=== PATIENT | male | born 1960 | race Caucasian/White ===

== ENCOUNTER 2018-09-23 10:40 | Outpatient (CLI) | payer OTHER ==
--- NOTE | 2018-09-23 13:46 | PET ---
PET CT: HISTORY: 58-year-old male with right lung cancer. Exam requested for initial staging. TECHNIQUE: PET scanning with CT attenuation correction was performed from the base of the brain through the prox imal thighs following the intravenous administration of 10.7 mCi F18-FDG in the right wrist. COMPARISON: None. CORRELATION: CTA chest of 09/10/18 from [facility]. FINDINGS: There is intense FDG localization in the right apical lung mass with a SUV of 19. Involvement of the adjacent bones cannot be excluded. No abnormal FDG localization is seen in the distal bones. No nicholas hypermetabolism is noted in the mediastinum, hilar regions, axilla, abdomen, or pelvis. No h ypermetabolic liver or adrenal lesions are seen. Physiologic activity is noted in the GI and tracts, and the visualized portions of the brain. The CT scan used for attenuation correction demonstrates no evidence of pleural effusions or ascites. IMPRESSION: Right apical lung malignancy. Adjacent bone involvement cannot be excluded. No evidence of distant me tastatic disease. POS: MANUELAH
== END 2018-09-23 10:41 | disposition home or self-care (01) ==
LOC: PET 10:40
PROVIDERS: ATTEND Internal Medicine Hematology & Oncology
DX: C34.91 Malignant neoplasm of unspecified part of right bronchus or lung (principal)
CPT/HCPCS: 78815; A9552

== ENCOUNTER 2018-10-02 06:58 | Outpatient (CLI) | payer OTHER ==
--- NOTE | 2018-10-02 08:55 | MRI ---
MRI thoracic spine with and without contrast: DATE: 10/02/2018 HISTORY: 58-year-old male with right upper lobe lung cancer. Evaluate extent of thoracic spine invasion. COMPARISON: None FINDINGS: At the apical segment of the right upper lobe, there is a heterogeneously moderately enhancing tumor mass that measures approximately 4.5 x 4.5 x 3.5 cm. It extends through the right T2-3 neural foramen and protrudes into the right side of the spinal canal, almost abutting the right side of the spinal cord, and occupy approximately 10-20% of the cross-sectional area of the spinal canal. The component of the tumor within the right side of the spinal canal measures approximately 2 x 1 x 1.5 c m. The tumor broadly abuts the right apical pleural surface (circumferentially as seen on axial images). A small portion of the right T2 vertebral body and right T2 pedicle have bone marrow signal abnormality which may represent reactive edema, or possibly early infiltration of bone by the tumor. The right T2-3 neural foramen is widened by the tumor. The tumor completely envelops the exiti ng right T2 nerve root. The thoracic spinal cord is normal in size and signal with no evidence of significant impingement. Th ere is no high-grade central spinal canal stenosis at any level. No abnormal enhancement or tumor mass at any other level within the spinal canal or osseous thoracic spine at other levels. Moderate d egenerative disc disease at several levels, including T12-L1 and L1-2. Chronic anterior wedging of L1. IMPRESSION: 1. Right apical segment upper lobe primary lung cancer, Pancoast tumor, extends into the right side o f the spinal canal through the right T2-3 neural foramen. 2. No other levels of involvement. No cord compression.
[2018-10-02] MEDS ORDERED: Gadobenate Dimeglumine 529 MG/1 ML (20ML VIAL) ONE (09:00)
== END 2018-10-02 06:59 | disposition home or self-care (01) ==
LOC: SCSMRI 06:58
PROVIDERS: ATTEND Radiology Radiation Oncology
DX: C34.11 Malignant neoplasm of upper lobe, right bronchus or lung (principal)
CPT/HCPCS: 72157

== ENCOUNTER 2018-10-31 14:11 | Inpatient (IN) | payer OTHER ==
[2018-10-31] MEDS ORDERED: Piperacillin/Tazobactam 4.5 GM VIAL ONE (14:28)
[2018-10-31 14:40] LABS: #Lymphocytes 0.1 thou/uL (1.20-3.40); #Monocytes 0.1 thou/uL (0.11-0.59); #Neutrophils 3.2 thou/uL (1.40-6.50); %Eosinophils 0.4 % (0.0-10.0); %Lymphocytes 2.8 % (21.0-51.0); %Monocytes 2.3 % (0.0-10.0); %Neutrophils 94.4 % (42.0-75.0); Hemoglobin 12.9 g/dL (14.0-18.0); Mean Corpuscular HGB CONC 34.9 g/dL (32.0-36.0); Mean Corpuscular Hemoglobin 31.6 pg (27.0-31.0); Mean Corpuscular Volume 90.4 fL (78.0-98.0); Mean Platelet Volume 7.4 fL (7.4-10.4); Platelet Count 133 thou/uL (130-400); RBC Distribution Width 12.5 % (11.5-14.5); Red Blood Cell (RBC) Count 4.07 mill/uL (4.70-6.10); White Blood Cell (WBC) Count 3.4 thou/uL (4.8-10.8)
--- NOTE | 2018-10-31 14:43 | RAD ---
XR Chest 1 View Portable History: Sepsis alert Comparison: Radiograph September 10, 2018 Findings: Subtle bibasilar airspace opacities are new. No pneumothorax. No acute osseous abnormality. Large right apical mass. Impression: Subtle bibasilar airspace opacities concerning for infection or treatment-related edema.
[2018-10-31 17:11] LABS: Albumin 3.5 g/dL (3.5-5.0)
[2018-10-31 17:12] LABS: Chloride 106 mmol/L (98-107); Potassium 3.8 mmol/L (3.5-5.1); Sodium 134 mmol/L (136-145)
[2018-10-31 17:13] LABS: Glucose 113 mg/dL (70-105)
[2018-10-31 17:14] LABS: Calcium 7.8 mg/dL (7.8-10.44); Globulin 2.5 g/dL (2.4-3.5)
[2018-10-31 17:15] LABS: Anion Gap 12 mmol/L (10-20); Bilirubin, Total 0.9 mg/dL (0.2-1.2); Carbon Dioxide 20 mmol/L (22-29)
[2018-10-31 17:16] LABS: Alkaline Phosphatase 78 U/L (40-150)
[2018-10-31 17:17] LABS: BUN (Urea Nitrogen) 10 mg/dL (8.4-25.7); Calc. Creatinine Clearance 0 mL/min (70-130); Estimated GFR-MDRD Greater than 90
[2018-10-31 17:18] LABS: AST (SGOT) 42 U/L (5-34)
[2018-10-31 17:19] LABS: ALT (SGPT) 52 U/L (8-55)
[2018-10-31 17:34] LABS: Bilirubin Negative (Negative); Blood, Urine Negative (Negative); Clarity Clear (Clear); Glucose, Urine (Dipstick) Normal (Negative); Leukocyte Negative Leu/uL (Negative); Nitrite Negative (Negative); Protein, Urine (Dipstick) Negative (Neg-Trace); Urobilinogen Normal mg/dL (Less than 2)
[2018-10-31] MEDS ORDERED: Acetaminophen 500 MG TAB ONE (18:31)
[2018-10-31] MEDS ORDERED: Sodium Chloride 0.9% 1,000 ML IV SCH (19:15)
[2018-10-31 22:42] VITALS: BMI 22.1
--- NOTE | 2018-10-31 22:55 | PDOC.EVN ---
Event Note - Event Note Event Note: H&P [id number]
[2018-11-01] MEDS: Sodium Chloride 0.9% 1,000 ML IV SCH ×2 (00:02→14:43)
[2018-11-01] MEDS: Acetaminophen 325 MG TAB PO PRN ×3 (00:12→19:21)
--- NOTE | 2018-11-01 03:06 | HP ---
CHIEF COMPLAINT: Fever. HISTORY OF PRESENT ILLNESS: Mr. Romero is a 58-year-old male with a past medical history of lung cancer, on chemotherapy, was sent to the emergency room from [facility] for fever and low blood pressure. The patient reports his fever was associated with chills that began last night after receiving his 4th round of chemo. Temperature maximum was 103. Also, he had a slight headache. He denies shortness of breath, nausea, or vomiting, but he has been having cough and sore throat. Septic workup done in the ED. Started on IV antibiotics. The patient has been admitted to the hospital for further management. PAST MEDICAL HISTORY: Lung cancer. PAST SURGICAL HISTORY: As elsewhere in the chart. SOCIAL HISTORY: He drinks socially. He is a former smoker. FAMILY HISTORY: Reviewed and noncontributory. ALLERGIES: NO KNOWN ALLERGIES. HOME MEDICATIONS: Please see home medications reconciliation form for updated medications. REVIEW OF SYSTEMS: Review of 14 systems is negative except what is mentioned in the history of present illness. PHYSICAL EXAMINATION: VITAL SIGNS: Blood pressure 100/65, pulse is 97, temperature is 100, respiratory rate is 20. HEAD AND NECK: Normocephalic, atraumatic. Neck is supple. CHEST: Fair bilateral air entry. HEART: S1, S2. Regular. ABDOMEN: Soft, nontender. Bowel sounds present. NEUROLOGIC: Awake, alert, oriented x3. PSYCH: Normal mood. EXTREMITIES: No clubbing or cyanosis. LABORATORY DATA: Sodium 134, WBC 3.4 with neutrophils 94%. Chest x-ray showed bibasilar air space opacities concerning for infection/edema ? ASSESSMENT AND PLAN: 1. Fever in an immunocompromised patient. 2. Pneumonia ? 3. Lung cancer, on chemotherapy. 4. Immunocompromised. PLAN: 1. Admit. 2. Septic workup including blood cultures. 3. IV antibiotics. 4. IV fluids. 5. Reconcile home medications. 6. DVT prophylaxis, low-molecular weight heparin. 7. Expected length of stay is 2 midnights or more. Job ID: [id number]
[2018-11-01] MEDS: Vancomycin HCl 1.25 GM in Sodium Chloride 0.9% 250 ML 250 ML IVPB SCH ×2 (03:58→17:12)
[2018-11-01] MEDS ORDERED: Vancomycin HCl 1 GM in Premix Bag 1 BAG IVPB SCH (04:00)
[2018-11-01 05:13] LABS: Anion Gap 12 mmol/L (10-20); BUN (Urea Nitrogen) 9 mg/dL (8.4-25.7); Calc. Creatinine Clearance 111 mL/min (70-130); Calcium 7.9 mg/dL (7.8-10.44); Carbon Dioxide 20 mmol/L (22-29); Chloride 108 mmol/L (98-107); Estimated GFR-MDRD Greater than 90; Glucose 99 mg/dL (70-105); Potassium 3.7 mmol/L (3.5-5.1); Sodium 136 mmol/L (136-145)
[2018-11-01 07:53] LABS: Band 13 % (5-11); Eosinophils 1 % (0-10); Hemoglobin 11.9 g/dL (14.0-18.0); Lymphocytes 11 % (21-51); MDiff Complete? YES; Mean Corpuscular HGB CONC 35.5 g/dL (32.0-36.0); Mean Corpuscular Volume 90.1 fL (78.0-98.0); Mean Platelet Volume 7.1 fL (7.4-10.4); Monocytes 3 % (0-10); Neutrophil 72 % (42-75); Platelet Count 99 thou/uL (130-400); Platelet Morphology Comment Appears Decreased; RBC Distribution Width 12.5 % (11.5-14.5); Red Blood Cell (RBC) Count 3.74 mill/uL (4.70-6.10); White Blood Cell (WBC) Count 1.6 thou/uL (4.8-10.8)
[2018-11-01] MEDS: Enoxaparin Sodium 40 MG/0.4 ML SYRINGE SC SCH (08:48)
[2018-11-01] MEDS: Cefepime 2 GM in Sodium Chloride 0.9% 100 ML IVPB SCH ×2 (08:48→20:12)
[2018-11-01] MEDS ORDERED: Prevnar 13-Val Conj/PF 0.5 ML SYRINGE IM ONE (09:00)
--- NOTE | 2018-11-01 14:31 | PRG ---
DATE OF SERVICE: 11/01/2018 SUBJECTIVE: The patient is seen and examined at the bedside. He is feeling good. His appetite is fair. He does not have much complaints to offer. He did not have fever today. OBJECTIVE: VITAL SIGNS: Blood pressure is 97/57, pulse is 79, temperature is 98.2, respirations 16, O2 saturation is 94% on room air. HEENT: His head is atraumatic and normocephalic. Eyes are PERRLA. Sclerae are nonicteric. Oral mucosa is moist. NECK: Supple. LUNGS: Breath sounds somewhat diminished at both bases. HEART: S1 and S2 normal. No S3. No S4. ABDOMEN: Soft, nontender, nondistended. EXTREMITIES: No clubbing, cyanosis, or edema. NEUROLOGIC: He is alert and oriented x4. There are no any motor or sensory deficits present. Cranial nerves are intact. LABORATORY DATA: White count of 1.6, hemoglobin 11.9, hematocrit 33.7, platelet count is 99,000. Sodium of 136, potassium 3.7, chloride 108, CO2 of 20, BUN 9, creatinine 0.72, glucose 99, and calcium 7.9. Microbiology; C difficile on stool, negative. Blood cultures x2, negative. IMPRESSION: 1. Fever postchemotherapy, most likely related to chemotherapy, although sepsis was not ruled out yet as an etiology. 2. Pulmonary infiltrates to rule out pneumonia. 3. Lung cancer, on chemotherapy. The last chemotherapy on . 4. Immunocompromised. 5. Hypotension. PLAN: Continue IV fluids. Continue IV antibiotics. We will check his procalcitonin. We will continue followup on CBC and comp every morning. Job ID: [id number]
--- NOTE | 2018-11-01 20:32 | CON ---
DATE OF CONSULTATION: REASON FOR CONSULTATION: Lung cancer. 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 His white blood cells were 3.8, and he was otherwise feeling okay, so he was monitored until Saturday when he continued having fevers and came to the Cancer Clinic after receiving radiation and blood pressure was noted to be in the 80s. He was given 2 L of IV fluids without any change in his blood pressure and was feeling very weak, so he was sent over to the ER. He also complained of mild diarrhea. Denies any nausea, vomiting, shortness of breath, or cough at that time. Chest x-ray showed subtle bibasilar airspace opacities concerning for infection or treatment related edema. C diff was negative. Since admission, the patient has been treated with cefepime and vancomycin and IV fluids. His blood pressure has improved to 90s systolic, however, is still not satisfactory. He has been afebrile since admission and otherwise feels well. REVIEW OF SYSTEMS: Ten-point review of systems negative except as per HPI. PAST MEDICAL HISTORY: Lung cancer. PAST SURGICAL HISTORY: Nasal surgery, right knee arthroscopy, and right ear surgery. FAMILY HISTORY: Melanoma in his father. Pancreatic cancer in his aunt. SOCIAL HISTORY: Former smoker, one pack per day for 30 years. HOME MEDICATIONS AND CURRENT MEDICATIONS: Reviewed. PHYSICAL EXAMINATION: GENERAL APPEARANCE: The patient is lying in bed, in no acute distress, eating lunch. VITAL SIGNS: Temperature 98.2, pulse 79, respirations 16, saturating 94% on room air, and blood pressure 87/56 to 97/57. HEENT: Normocephalic and atraumatic. RESPIRATIONS: Clear. CARDIAC: S1 and S2, regular rhythm and rate. ABDOMEN: Soft and nondistended. NEUROLOGIC: Cranial nerves 2 through 12 are grossly intact. PSYCHIATRIC: Awake, alert, and oriented x3. LABORATORY DATA: White blood cells 3.4 on admission, currently 1.6 with 72% neutrophils and 13% bands, hemoglobin 11.9, and platelets 99. Sodium 136, potassium 3.7, BUN 9, and creatinine 0.72. Urinalysis negative for infection. C diff is negative. Blood cultures are currently no growth to date. IMAGING DATA: A chest x-ray dated on 10/31/2018 showed subtle bibasilar opacities for infection and pressure related edema. ASSESSMENT AND PLAN: A 58-year-old male with Pancoast tumor right upper lung, currently on chemotherapy and radiation, presenting with fever and hypotension. The patient is afebrile since admission, currently on antibiotics and is not neutropenic with questionable pneumonia in the lower lobes. Recommend to continue IV fluids for hypotension, which is slowly improving. The blood cultures are no growth to date. Clostridium difficile is negative. If his blood pressure stabilizes off IV fluids at least to 100 systolic, the patient can likely be discharged home with a few days course of Levaquin and follow up with Dr. Mcmahon and Dr. Brunner in the clinic. Thank you for this consult. Job ID: [id number]
[2018-11-02 03:26] LABS: Vancomycin, Trough 7.1 ug/mL
[2018-11-02] MEDS: Vancomycin HCl 1.25 GM in Sodium Chloride 0.9% 250 ML 250 ML IVPB SCH (04:50)
[2018-11-02] MEDS: Sodium Chloride 0.9% 1,000 ML IV SCH ×2 (04:50→19:49)
[2018-11-02] MEDS: Cefepime 2 GM in Sodium Chloride 0.9% 100 ML IVPB SCH (08:51)
[2018-11-02] MEDS: Saccharomyces boulardii 250 MG CAP PO SCH (08:51)
[2018-11-02] MEDS: Enoxaparin Sodium 40 MG/0.4 ML SYRINGE SC SCH (08:52)
[2018-11-02] MEDS: Acetaminophen 325 MG TAB PO PRN (08:54)
[2018-11-02 10:51] LABS: ALT (SGPT) 55 U/L (8-55); AST (SGOT) 40 U/L (5-34); Albumin 3.3 g/dL (3.5-5.0); Alkaline Phosphatase 68 U/L (40-150); Anion Gap 12 mmol/L (10-20); BUN (Urea Nitrogen) 7 mg/dL (8.4-25.7); Bilirubin, Total 0.4 mg/dL (0.2-1.2); Calc. Creatinine Clearance 104 mL/min (70-130); Calcium 8.4 mg/dL (7.8-10.44); Carbon Dioxide 20 mmol/L (22-29); Chloride 104 mmol/L (98-107); Estimated GFR-MDRD Greater than 90; Globulin 2.3 g/dL (2.4-3.5); Glucose 161 mg/dL (70-105); Potassium 3.5 mmol/L (3.5-5.1); Protein, Total 5.6 g/dL (6.0-8.3); Sodium 132 mmol/L (136-145)
[2018-11-02] MEDS ORDERED: Vancomycin HCl 1.25 GM in Sodium Chloride 0.9% 250 ML 250 ML IVPB SCH (12:00)
[2018-11-02 12:17] LABS: #Eosinphils 0.1 thou/uL (0.0-0.7); #Lymphocytes 0.8 thou/uL (1.20-3.40); #Monocytes 0.1 thou/uL (0.11-0.59); #Neutrophils 1.6 thou/uL (1.40-6.50); %Basophils 0.9 % (0.0-1.0); %Eosinophils 2.7 % (0.0-10.0); %Lymphocytes 30.5 % (21.0-51.0); %Monocytes 4.7 % (0.0-10.0); %Neutrophils 61.2 % (42.0-75.0); Hemoglobin 12.6 g/dL (14.0-18.0); Mean Corpuscular HGB CONC 35.6 g/dL (32.0-36.0); Mean Corpuscular Hemoglobin 31.7 pg (27.0-31.0); Mean Corpuscular Volume 89.2 fL (78.0-98.0); Mean Platelet Volume 7.4 fL (7.4-10.4); Platelet Count 94 thou/uL (130-400); RBC Distribution Width 12.3 % (11.5-14.5); Red Blood Cell (RBC) Count 3.96 mill/uL (4.70-6.10); White Blood Cell (WBC) Count 2.6 thou/uL (4.8-10.8)
--- NOTE | 2018-11-02 13:17 | PRG ---
DATE OF SERVICE: 11/02/2018 SUBJECTIVE: The patient is seen and examined at bedside. He is feeling significantly better. His appetite is fair. He does not have more diarrhea. OBJECTIVE: VITAL SIGNS: Blood pressure is 107/59, pulse is 77, temperature is 98.0, maximal temperature is 98.5, respiratory rate is 18, and O2 saturation is 96% on room air. HEENT: His head is atraumatic and normocephalic. Eyes are PERRLA. Sclerae are nonicteric. Oral mucosa is moist. NECK: Supple. LUNGS: Clear. HEART: S1 and S2 normal. No S3. No S4. No any murmur. ABDOMEN: Soft and nontender. Bowel sounds are present. No organomegaly. EXTREMITIES: No clubbing, cyanosis, or edema. NEUROLOGIC: He follows my commands. He moves his all 4 extremities. There is no any motor or sensory deficits. LABORATORY DATA: Labs showed white count of 2.6, hemoglobin 12.6, hematocrit 35.4, and platelet count is 94,000. Sodium of 132, potassium 3.5, chloride 104, CO2 of 20, BUN of 7, creatinine of 0.77, total protein 5.6, albumin 3.3, and globulin 2.3. Microbiology, two blood cultures negative. C. difficile toxins and antigen negative in the stool. IMPRESSION: 1. Fever post chemotherapy, most likely related to chemotherapy, although sepsis was entertained as a possible working diagnosis. 2. Pulmonary infiltrates to rule out pneumonia. 3. Lung cancer on chemotherapy. 4. Leukopenia, improving. 5. Immunocompromised. 6. Hypotension, improving. PLAN: Plan is to discontinue vancomycin and Zosyn. Switch him to oral Levaquin and discontinue IV fluids. Encourage p.o. intake and most likely discharge home tomorrow if it is okay with oncologists. Job ID: [id number]
[2018-11-03] MEDS: Sodium Chloride 0.9% 1,000 ML IV SCH (00:20)
[2018-11-03 05:16] LABS: Anion Gap 12 mmol/L (10-20); BUN (Urea Nitrogen) 8 mg/dL (8.4-25.7); Calc. Creatinine Clearance 116 mL/min (70-130); Calcium 9.1 mg/dL (7.8-10.44); Carbon Dioxide 24 mmol/L (22-29); Chloride 105 mmol/L (98-107); Estimated GFR-MDRD Greater than 90; Glucose 97 mg/dL (70-105); Sodium 137 mmol/L (136-145)
[2018-11-03 07:17] LABS: Hemoglobin 12.9 g/dL (14.0-18.0); Mean Corpuscular HGB CONC 35.9 g/dL (32.0-36.0); Mean Corpuscular Volume 89.1 fL (78.0-98.0); Mean Platelet Volume 7.5 fL (7.4-10.4); Platelet Count 96 thou/uL (130-400); RBC Distribution Width 12.5 % (11.5-14.5); Red Blood Cell (RBC) Count 4.03 mill/uL (4.70-6.10); White Blood Cell (WBC) Count 3.1 thou/uL (4.8-10.8)
[2018-11-03 07:30] LABS: Band 12 % (5-11); Eosinophils 5 % (0-10); Lymphocytes 27 % (21-51); MDiff Complete? YES; Monocytes 1 % (0-10); Neutrophil 37 % (42-75); Platelet Morphology Comment Appears Decreased; Polychromasia SLIGHT = 2-3 cells (100X) (0-2/hpf); Reactive Lymphocytes 17 % (0-10)
[2018-11-03] MEDS: Saccharomyces boulardii 250 MG CAP PO SCH (08:35)
[2018-11-03] MEDS: Enoxaparin Sodium 40 MG/0.4 ML SYRINGE SC SCH (09:00)
[2018-11-03 09:08] VITALS: BP 101/57; TEMP 97.8
--- NOTE | 2018-11-03 15:39 | DIS ---
DATE OF ADMISSION: 10/31/2018 DATE OF DISCHARGE: 11/03/2018 FINAL DIAGNOSES: 1. Fever, felt to be most likely related to chemotherapy treatment, but the possibility of pneumonitis/pneumonia was entertained. 2. Lung cancer on chemotherapy. 3. Leukopenia, improved. 4. Immunocompromised status. 5. Hypotension, improved. CONSULTANTS: Dr. Albarran, Oncology Service. HOSPITAL COURSE: The patient is a 58-year-old male, who was admitted to the hospital after he started having fever post-radiation the same day. His temperature was up to 103. He had slight headache. Denied any shortness of breath, nausea, vomiting, cough. A septic workup was initiated in the emergency room. He was started on IV antibiotics and admitted to the hospital. At the time of admission, his white count was 3.4 with neutrophils 94%. Sodium was 134. Chest x-ray showed bibasilar airspace opacities concerning for infection/edema. The patient was placed on IV vancomycin and cefepime. His blood cultures were done and came back negative x2. During this hospitalization, he had some diarrhea, so he was checked for Clostridium difficile colitis and this was negative. He did not have more fever during this hospitalization. His white count was down to 1.6, but now it is up to 3.1 today and hemoglobin is 12.9. His kidney function is within normal limits. He was seen by Dr. Albarran, who recommended to use antibiotics to have full coverage and discharge the patient on oral antibiotic home. So, he is discharged home in good condition. His vitals blood pressure is 101/57, pulse is 82, respirations are 18, temperature are 97.8, and pulse oximetry 95% on room air. He is seen and examined before his discharge. He will stay on regular diet. Activities as tolerated. He will stop by Dr. Brunner's office for radiation. If this is confirmed by the office today post discharge. At the time of discharge, his medication is levofloxacin 500 mg once a day for additional 7 days, and he will follow up with cancer clinic after he calls for the followup appointment in the next few days and they will make decision whether he is ready for more chemotherapy. Job ID: [id number]
--- NOTE | 2018-11-05 01:42 | PQF ---
[employer] Winform Viewer BRAULIO GARSIA ZBIGNIEW A MD [id number] CLINICAL DOCUMENTATION CLARIFICATION FORM: POST DISCHARGE Addendum to original discharge summary date: ____ Late entry note date: __ DATE: 11/05/18 ATTN: Demarco Salgado Please exercise your independent, professional judgment in responding to the clarification form. Clinical indicators are provided on the bottom of this form for your review Can you please specify what the patient actually has from the below indicators? Please check appropriate box(es): [ ] Sepsis due to: (Pna, UTI, gangrenous gall bladder, etc.) [ ] SIRS due to non-infectious process (please specify etiology) [ ] with organ dysfunction [ ] without organ dysfunction [ ] Severe sepsis with acute organ dysfunction of: (Examples: respiratory failure, encephalopathy, acute kidney failure, other) [ ] Localized infection without sepsis [ x ] Other diagnosis please specify possible pneumonia [ ] Unable to determine In addition, please specify: Present on Admission (POA): [ x ] Yes [ ] No [ ] Unable to determine For continuity of documentation, please document condition throughout progress notes and discharge summary. Thank You. CLINICAL INDICATORS H&P p1 10/31 Dr. Escamilla- "VS: BP 100/65, PULSE 97, TEMP 100" Emergency room visit notes p8- Final Primary: Pneumonia PN p1 11/02 Dr. Aguiar- fever post chemotherapy, most likely related to chemotherapy, although sepsis was entertained as a possible working diagnosis" DS p1 11/03 Dr. Aguiar- fever post chemotherapy, most likely related to chemotherapy, but the possibility of pneumonitis/ pneumonia was entertained DS p1 11/03 Dr. Aguiar- hypotension RISK FACTORS immunocompromised patient- H&P 10/31 Dr. Escamilla Lung cancer on chemotherapy- DS 11/03 Dr. Aguiar Pneumonia- Emergency room visit notes p8 TREATMENTS: SEPTIC WORKUP DONE IN ED- H&P 10/31 Dr. Stewart IV Vancomycin 1.25gm-APR 26 Plan: Septic workup including blood cultures-H&P 10/31 Dr. Escamilla Chest X-ray 10/31 IV Fluids- APR 26 (This form is maintained as a part of the permanent medical record) 2014 [employer], [employer]. All Rights Reserved Douglas [email or web address] [not provided] MTDD
== END 2018-11-03 11:25 | disposition home or self-care (01) | DRG 194 ==
LOC: ERS 14:11 → ONC 17:00
PROVIDERS: ADMIT Internal Medicine; ATTEND Internal Medicine
PROC: 3E0234Z Introduction of Serum, Toxoid and Vaccine into Muscle, Percutaneous Approach (ICD-10-PCS; principal; 2018-10-31)
DX: J18.1 Lobar pneumonia, unspecified organism (principal); C34.11 Malignant neoplasm of upper lobe, right bronchus or lung; R50.2 Drug induced fever; T45.1X5A Adverse effect of antineoplastic and immunosuppressive drugs, initial encounter; I95.9 Hypotension, unspecified; Z23 Encounter for immunization; Z87.891 Personal history of nicotine dependence
CPT/HCPCS: 36415; 71045; 80048; 80053; 80202; 81003; 83605; 85025; 87040; 87324; 87449; 94760; 96365; 96367; J0692; J1650; J2543; J3370; J3490; J7050

== ENCOUNTER 2019-07-31 09:48 | Outpatient (CLI) | payer OTHER ==
[2019-07-31 10:39] LABS: Estimated GFR-MDRD - POC Greater than 90
--- NOTE | 2019-08-03 12:08 | CT ---
CT OF THE CHEST WITH IV CONTRAST INDICATION: History of lung malignancy COMPARISON: CT of the thorax with contrast from [facility] dated November 26, 2018 and a CTA of the thorax from [facility] dated September 10, 2018 FINDINGS: CHEST: Lungs: There is postprocedural change of a right upper lobectomy. There is moderate to severe parasep flora and centrilobular emphysema. No recurrent mass is identified. There is postprocedural change also of a partial osteotomy of the right first, second, third and sixth ribs. Pleural space: No effusion. Mediastinum: No pathologically enlarged lymph nodes are evident. Upper abdomen:The adrenal glands are normal appearing. Visualized aspects of the liver, spleen, pancr eas and kidneys appear within normal limits. Osseous structures: No acute osseous abnormality. No destructive osteolytic or osteoblastic lesion i s identified. There is scattered degenerative and osteoarthritic changes. Soft tissues:Normal. IMPRESSION: 1. Interval postprocedural change of the right upper lobectomy and removal of portions of the ice cream dispenser ior aspect of the right first, second, third and sixth ribs. No evidence to suggest recurrent localized disease or metastatic disease within the thorax. 2. Stable moderate to severe emphysema.
== END 2019-07-31 09:49 | disposition home or self-care (01) ==
LOC: SCSCT 09:48
PROVIDERS: ATTEND Internal Medicine Hematology & Oncology
DX: C34.11 Malignant neoplasm of upper lobe, right bronchus or lung (principal); J43.9 Emphysema, unspecified; Z98.890 Other specified postprocedural states
CPT/HCPCS: 71260; 82565

== ENCOUNTER 2022-04-10 10:15 | Outpatient (CLI) | payer OTHER | END 2022-04-10 10:16 | disposition home or self-care (01) | LOC: PET 10:15 | PROVIDERS: ATTEND Physician Assistant | DX: C34.11 Malignant neoplasm of upper lobe, right bronchus or lung (principal); R91.1 Solitary pulmonary nodule | CPT/HCPCS: 78815; A9552 ==